=== PATIENT | male | born 1965 | race Two or more races ===

== ENCOUNTER 2017-10-25 14:23 | Emergency (ER) | payer MEDICAID ==
[~2017-10-25] VITALS: Ht 162.6 cm; Wt 70.0 kg
[2017-10-25 16:09] VITALS: BP 134/88
== END 2017-10-25 16:09 | disposition home or self-care (01) ==
LOC: ED 15:50
DX: S09.93XA Unspecified injury of face, initial encounter (principal); G89.11 Acute pain due to trauma; I10 Essential (primary) hypertension; J44.9 Chronic obstructive pulmonary disease, unspecified; Y04.2XXA Assault by strike against or bumped into by another person, initial encounter; Y93.89 Activity, other specified; Y92.89 Other specified places as the place of occurrence of the external cause; Y99.8 Other external cause status
CPT/HCPCS: 70100; 99284